=== PATIENT | male | born 1945 | race Caucasian/White ===

== ENCOUNTER 2018-03-22 07:59 | Day surgery (SDC) | payer MEDICARE, OTHER, SELFPAY ==
[2018-03-22 09:22] VITALS: BP 167/65; PULSE 80; RESP 16; TEMP 36.5; O2SAT 96; BMI 33.9
[2018-03-22] MEDS: PROPARACAINE 0.5% OPHTH SOL 2 DROPS EYE-OP (09:38)
[2018-03-22] MEDS: CATARACT EYE COMPOUND (10 DROPS/SYRINGE) 3 DROPS EYE-OP (09:40)
--- NOTE | 2018-03-22 09:44 | P.OP_ITS ---
Operative Date/Time/Diagnoses Pre-op diagnosis: Nuclear Cataract Left eye Post-op diagnosis: same Procedure & Clinicians Surgeon: Micah Alexandre Anesthesia Type: MAC +/- and Sedation Operative Notes Procedure in detail: Patient brought to the operating suite. Tetracaine drops placed in the left eye. Patient was prepped and draped in sterile manner. Wire lid speculum was placed in the eye. Betadine drops were placed on the eye. This was irrigated. Lidocaine jelly was placed on the eye. A paracentesis port was created with a side-port blade. 0.1 mL 1% preservative free lidocaine was injected into the anterior chamber. The anterior chamber was deepened with viscoelastic. 2.6 mm keratome was used to create a temporal clear corneal incision. Cystotome and Utrata forceps were used to create continuous tear capsulorrhexis. Balanced salt solution was used to hydro dissect the nucleus. The phacoemulsification handpiece was inserted and the nucleus was removed using the stop and chop technique. The irrigation aspiration handpiece was inserted and the remaining cortex was removed. Anterior chamber was deepened with viscoelastic. An Garza ZCB00 intraocular lens with a power of 20.0 was injected into the capsular bag. Irrigation aspiration handpiece was inserted and the remaining viscoelastic was removed. Incision was hydrated with balanced salt solution and found to be leak free with pressure with Weck- Luz sponges. 0.1 mL Vigamox injected anterior chamber. 0.3 mL Kenalog 10 mg was injected subconjunctivally. Lid speculum was removed. The patient left the operating room in excellent condition. Complications: none Condition: stable Disposition: same day surgery
--- NOTE | 2018-03-22 09:44 | PM.PREOP ---
Pre-operative Note Interval Note History & Physical reviewed/Exam performed by Physician: No Changes to H&P: No
[2018-03-22] MEDS: CHONDROIDTIN/SOD HYALURONATE 1.05 ML SYRINGE INTRAOCULA (10:08)
[2018-03-22] MEDS: PHENYLEPHRINE/LIDOCAINE VIAL (OR) 0.2 ML EYE-OP (10:08)
[2018-03-22] MEDS: MOXIFLOXACIN OPHTH DROPS 3 ML BOTTLE 2 DROPS INJ (10:08)
[2018-03-22] MEDS: TRIAMCINOLONE 50 MG/5 ML VIAL INJ (10:08)
[2018-03-22] MEDS: LIDOCAINE JELLY 2% 5 ML 1 APPLIC TOP (10:09)
[2018-03-22] MEDS: BALANCED SALT IRRIG SOLN NO.2 500 ML, EPINEPHrine 1 MG IRR (10:09)
[2018-03-22] MEDS: TETRACAINE 0.5% OPHTH DROPS 4 ML 2 DROPS EYE-OP (10:10)
[2018-03-22 10:25] VITALS: BP 141/71; PULSE 76; RESP 16; TEMP 37.3; O2SAT 95
== END 2018-03-22 10:35 ==
PROVIDERS: PCP Internal Medicine; Visit Provider Ophthalmology
DX: H25.12 Age-related nuclear cataract, left eye (principal); I10 Essential (primary) hypertension; E11.9 Type 2 diabetes mellitus without complications; Z79.84 Long term (current) use of oral hypoglycemic drugs
CPT/HCPCS: J0171; J2250; J3301

== ENCOUNTER 2018-04-05 06:56 | Day surgery (SDC) | payer MEDICARE, OTHER, SELFPAY ==
[2018-04-05] MEDS: PROPARACAINE 0.5% OPHTH SOL 2 DROPS EYE-OP (07:13)
[2018-04-05] MEDS: CATARACT EYE COMPOUND (10 DROPS/SYRINGE) 3 DROPS EYE-OP (07:20)
[2018-04-05 07:23] VITALS: BP 170/79; PULSE 86; RESP 16; TEMP 36.6; O2SAT 97; BMI 33.9
--- NOTE | 2018-04-05 08:07 | PM.PREOP ---
Pre-operative Note Interval Note History & Physical reviewed/Exam performed by Physician: No Changes to H&P: No
--- NOTE | 2018-04-05 08:08 | PM.OP.1 ---
Operative Date/Time/Diagnoses Pre-op diagnosis: Nuclear cataract right eye Procedure & Clinicians Procedure: Cataract Surgery Same procedure as scheduled: Yes Surgeon: Micah Alexandre Anesthesia Type: MAC +/- and Sedation Operative Notes Procedure in detail: Patient brought to the operating suite. Tetracaine drops placed in the right eye. Patient was prepped and draped in sterile manner. Wire lid speculum was placed in the eye. Betadine drops were placed on the eye. This was irrigated. Lidocaine jelly was placed on the eye. A paracentesis port was created with a side-port blade. 0.1 mL 1% preservative free lidocaine was injected into the anterior chamber. The anterior chamber was deepened with viscoelastic. 2.6 mm keratome was used to create a temporal clear corneal incision. Cystotome and Utrata forceps were used to create continuous tear capsulorrhexis. Balanced salt solution was used to hydro dissect the nucleus. The phacoemulsification handpiece was inserted and the nucleus was removed using the stop and chop technique. The irrigation aspiration handpiece was inserted and the remaining cortex was removed. Anterior chamber was deepened with viscoelastic. An Garza ZCB00 intraocular lens with a power of 19.0 was injected into the capsular bag. Irrigation aspiration handpiece was inserted and the remaining viscoelastic was removed. Incision was hydrated with balanced salt solution and found to be leak free with pressure with Weck-Luz sponges. 0.1 mL Vigamox injected anterior chamber. 0.3 mL Kenalog 10 mg was injected subconjunctivally. Lid speculum was removed. The patient left the operating room in excellent condition. Complications: none Condition: stable Disposition: same day surgery
[2018-04-05] MEDS: PHENYLEPHRINE/LIDOCAINE VIAL (OR) 0.2 ML EYE-OP (08:21)
[2018-04-05] MEDS: CHONDROIDTIN/SOD HYALURONATE 1.05 ML SYRINGE INTRAOCULA (08:22)
[2018-04-05] MEDS: TRIAMCINOLONE 50 MG/5 ML VIAL INJ (08:22)
[2018-04-05] MEDS: MOXIFLOXACIN OPHTH DROPS 3 ML BOTTLE 2 DROPS INJ (08:22)
[2018-04-05] MEDS: LIDOCAINE JELLY 2% 5 ML 1 APPLIC TOP (08:23)
[2018-04-05] MEDS: TETRACAINE 0.5% OPHTH DROPS 4 ML 2 DROPS EYE-OP (08:24)
[2018-04-05 08:37] VITALS: BP 137/77; PULSE 83; RESP 15; TEMP 36.4; O2SAT 95
== END 2018-04-05 08:50 | disposition home or self-care (01) ==
LOC: OR 06:57
PROVIDERS: PCP Internal Medicine; Visit Provider Ophthalmology
DX: H25.11 Age-related nuclear cataract, right eye (principal); I10 Essential (primary) hypertension; E11.9 Type 2 diabetes mellitus without complications; Z79.84 Long term (current) use of oral hypoglycemic drugs
CPT/HCPCS: J2250; J3301

== ENCOUNTER → 2020-07-24 10:45 | Outpatient (CLI) | payer MEDICARE, OTHER, SELFPAY ==
[2020-07-24 11:20] LABS: COVID19 -Nasal RAPID Negative (Negative)
== END ==
PROVIDERS: PCP Internal Medicine; Visit Provider Physician Assistant
DX: Z01.812 Encounter for preprocedural laboratory examination (principal); Z20.822 Contact with and (suspected) exposure to COVID-19
CPT/HCPCS: 87635; C9803

== ENCOUNTER → 2020-07-26 08:53 | Day surgery (SDC) | payer MEDICARE, OTHER, SELFPAY ==
[2020-07-19 08:08] VITALS: BMI 32.4
[2020-07-26 09:21] VITALS: BP 190/74; PULSE 69; RESP 14; TEMP 36.2; O2SAT 100; BMI 30.7
--- NOTE | 2020-07-26 10:55 | PM.PREOP ---
Pre-operative Note COVID-19 COVID-19 status: Negative Interval Note History & Physical reviewed/Exam performed by Physician: Yes Changes to H&P: No
[2020-07-26] MEDS: CEFAZOLIN 1 GM VIAL 2 GM IV (11:10)
--- NOTE | 2020-07-26 11:20 | SUR.OPER ---
Supine on padded OR bed, head on pillow, arms secured on padded arm boards at <90 degrees abduction, bump under left hip, legs uncrossed, left leg under control of surgeon, safety belt at pelvis, tape over blanket over right lower leg.
[2020-07-26] MEDS: BUPIVACAINE 0.5% (PF) VIAL 30 ML INJ (11:31)
[2020-07-26 12:02] VITALS: BP 150/60; PULSE 61; RESP 14; O2SAT 96
[2020-07-26 12:20] VITALS: BP 137/55; PULSE 57; RESP 16; TEMP 36.5; O2SAT 96
[2020-07-26 12:35] VITALS: BP 135/52; PULSE 57; RESP 16; TEMP 36.7; O2SAT 97
--- NOTE | 2020-07-26 15:27 | P.OP_ITS ---
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 He has failed conservative treatment and has an impending ulcer due to the chronic deformity and inability to offload affectively in his chronic neuropathy. He has failed custom accommodative orthotics. I have recommended metatarsal head excision to remove the plantar prominence and avoid progression to an open ulcer and osteomyelitis. We also discussed callus paring. The risks and benefits of the procedure have been discussed with the patient even opportunity to ask questions. The risks of surgery include but are not limited to infection, persistence of pain, damage to nerves and blood vessels, posttraumatic arthritis, wound healing problems, need for additional surgery, DVT, PE, cardiopulmonary complications and . The patient expressed a thorough understanding of the risks and benefits of surgery and has elected to proceed. Consent was signed in the office. Surgeon: Kalee Peterson Click Yes if Unassisted: Yes Anesthesia Type: Local (10 cc) Operative Notes Findings: Left lower extremity shows grossly cavovarus alignment with a thickened callus the plantar 5th tarsal metatarsal head and very prominent 5th metatarsal head a palpated through the skin. There is a central ecchymotic area in the callus but no erythema or gross breakdown. Lateral incision is made and 5th metatarsal head osteotomized and excised. No signs of infection. Wound is irrigated and closed. Callus is pared down Closure Type: primary Specimen(s): none sent Estimated Blood Loss (mL): 5 Blood products transfused: none Tourniquet time (min): 10 Procedure in detail: The Patient was seen in the preoperative area the site of surgery was marked informed consent confirmed. He was brought back to the operating room by the anesthesia team. Was positioned supine on operative table general anesthetic was administered. All bony prominences well padded. A well- padded thigh tourniquet was placed. An SCD was placed on the contralateral lower extremity. A ipsilateral thigh bump was placed. The left lower extremity was prepped and draped in the standard sterile fashion a formal time-out procedure was performed confirming the patient's side and site of surgery a dministration of appropriate preoperative antibiotics. All were in agreement. Attention was then turned to the left foot. There is prominent plantar callus and prominence of the 5th metatarsal head. An Esmarch was used for exsanguination and the tourniquet was raised to 250 mmHg in the stayed there for 10 minutes. Lateral incision at the side of the 5th MTP joint was made down through the skin and subcutaneous tissues. The joint was entered and the metatarsal head exposed. Homans were placed in. The resection level was checked on mini C-arm fluoroscopy and then the TTS saw was used to resect the metatarsal head with a care to angle this taking more plantar and lateral bone to decrease prominence. Once this was completed adequate resection was confirmed on intraoperative fluoroscopy and then edges were smoothed using the rongeur and a rasp. The wound was irrigated copiously and closed with 2-0 PDS 4-0 Monocryl and 3-0 nylon suture. 10 cc of local anesthetic was injected aroun d the incision. At this time a new blade was used to Pare down the plantar callus once this was completed the foot was washed again and sterile dressings were placed with Xeroform gauze current lacks and an Jack wrap. The patient had a postoperative shoe that we placed on the PACU. The drapes removed anesthesia was discontinued patient was woken and taken to the PACU in good condition. There no immediate complications from this procedure. All counts were correct. Complications: none Post-operative Condition: stable Disposition: PACU Plan for aftercare: Flat foot or heel weight-bearing in the stiff-soled shoe. Keep dressing clean dry and intact and in place until follow-up. If it does get soiled wet or needs to be removed place clean gauze or clean Band-Aid over the sutures. Keep the sutures dry.
== END | disposition home or self-care (01) ==
LOC: OR 08:54 → AC 11:02 → OR 12-23 00:05
PROVIDERS: PCP Internal Medicine; Referring Provider Orthopaedic Surgery Foot and Ankle Surgery; Visit Provider Orthopaedic Surgery Foot and Ankle Surgery
PROC: (CPT 28113; principal; 2020-07-26 10:15)
DX: S93.125A Dislocation of metatarsophalangeal joint of left lesser toe(s), initial encounter (principal); M21.622 Bunionette of left foot; E11.42 Type 2 diabetes mellitus with diabetic polyneuropathy; I25.10 Atherosclerotic heart disease of native coronary artery without angina pectoris; G47.30 Sleep apnea, unspecified; I11.9 Hypertensive heart disease without heart failure; Z79.84 Long term (current) use of oral hypoglycemic drugs; L84 Corns and callosities
CPT/HCPCS: 28113; J0690; J2704; J3010